=== PATIENT | male | born 1980 | race Caucasian/White ===

== ENCOUNTER 2016-05-12 23:04 | Observation (INO) | payer OTHER ==
[~2016-05-12] VITALS: Ht 177.8 cm; Wt 170.9 kg
--- NOTE | ~2016-05-12 | ER ---
PATIENT'S NAME: [facility] AGE: 35 Y [address] ROOM: [place] [address] LOCATION: [facility] [place] ADMIT DATE: 05/13/2016 ER/Outpatient Report DISCHARGE DATE: FAMILY PHYSICIAN: PHYSICIAN, NO ATTENDING PHYSICIAN: JOSE G HINOJOSA Time of Arrival: 2307 hours. Time of Exam: 2307 hours. CHIEF COMPLAINT: Alcohol detox. HISTORY OF PRESENT ILLNESS: The patient states he has been drinking a 5th of whiskey or two every day for approximately the past month. He was not feeling very well when he woke up this morning. Has not taken any of his medications, but continued to drink. He drank a pint and a 5th of whiskey today. Last drink was at 8:00 p.m. today. Denies feeling nauseated, has not vomited. Denies any desire to harm himself. He does have a history of alcohol abuse. Denies pain anywhere. When asked if he wants to quit drinking, he states that is the general plan. He states he has not been taking any of his medications for the past couple of days. He does take medications for diabetes and hypertension. ALLERGIES: PENICILLIN. CURRENT MEDICATIONS: On the chart and reviewed by me. PAST MEDICAL HISTORY: 1. Non insulin-dependent diabetes. 2. Hypertension. 3. PTSD. 4. Depression. 5. Asthma. 6. Obesity. 7. Prior detox, last was approximately a month ago. PAST SURGERIES: Negative. SOCIAL HISTORY: He states he does chew two cans daily. Denies use of marijuana or other street drugs. Does drink alcohol as mentioned in history. PATIENT'S NAME: [facility] AGE: 35 Y [address] ROOM: [address] [address] LOCATION: [facility] [place] ADMIT DATE: 05/13/2016 ER/Outpatient Report DISCHARGE DATE: FAMILY PHYSICIAN: PHYSICIAN, NO ATTENDING PHYSICIAN: JOSE G HINOJOSA REVIEW OF SYSTEMS: Negative other than those mentioned in the HPI. PHYSICAL EXAMINATION: VITAL SIGNS: He weighed 171.9 kg. Blood pressure is 189/91, pulse of 136, respirations 20, temperature of 98.9, O2 saturation was 98% on room air. Maycol Coma Scale is 15. GENERAL: He is awake, alert, and oriented x4. SKIN: His skin is pink, warm, and dry. RESPIRATIONS: Even and unlabored. Lung sounds are clear throughout. HEART: Regular rate and rhythm. ABDOMEN: Soft and nondistended. Bowel sounds are present. He walked in with a steady even gait. EMERGENCY DEPARTMENT COURSE: EKG was completed. It shows sinus tachycardia. IV saline lock was initiated with fluids of normal saline started at a wide-open rate. Banana bag was ordered from the pharmacy. Did Accu-Chek and was 166. Remainder of the lab results are not back at this time. Dr. Caldera was given report and he will continue to follow the patient. BALAJI APONTE APRN FOR MD ALAINA COUCH/carlin /[id number] d: 05/13/16 0247 t: 05/24/16 0836, OUTPATIENT REPORT
--- NOTE | ~2016-05-12 | HP ---
PATIENT'S NAME: [facility] AGE: 35 Y [address] ROOM: [place] [id number] [place] [facility] [place]: 05/13/2016 History & Physical DISCHARGE DATE: FAMILY PHYSICIAN: PHYSICIAN, NO ATTENDING PHYSICIAN: JOSE G HINOJOSA DATE OF SERVICE: CHIEF COMPLAINT: Alcohol intoxication. HISTORY OF PRESENT ILLNESS: This is a 35-year-old male with a long history of alcohol use disorder who was just recently discharged from here in March 2016 for alcohol intoxication and alcohol detoxification. The patient says that ever since he was discharged from here he was sober; however, about a week ago, he relapsed again. For the last 7 days, he has been drinking about 1-2 bottles of whiskey daily and his last drink was last night at 8 p.m. Yesterday, he started feeling that he was withdrawing with the sensation of a tachycardia, diaphoresis, shaking, tremor, and he knew he was withdrawing; so, he kept drinking alcohol; however, this time, he wants to get sober again that is why he came here to the emergency room for alcohol detoxification. He denies any nausea, vomiting, abdominal pain, melena, coffee-ground emesis, hematemesis, hematuria, or hematochezia. No abdominal pain either. REVIEW OF SYSTEMS: As mentioned in the history of present illness. All other systems reviewed and negative except those mentioned in the history of present illness. PAST MEDICAL HISTORY: 1. PTSD. 2. Asthma. 3. Alcohol use disorder. 4. Hypertension. 5. Hyperlipidemia. 6. Diabetes type 2. 7. Morbid obesity. ALLERGIES: AMOXICILLIN, WHICH CAUSES HIVES. HOME MEDICATIONS: It will be reconciled in the morning. SOCIAL HISTORY: PATIENT'S NAME: [facility] AGE: 35 Y [address] ROOM: [address] [address] [place] [facility] [place]: 05/13/2016 History & Physical DISCHARGE DATE: FAMILY PHYSICIAN: PHYSICIAN, NO ATTENDING PHYSICIAN: JOSE G HINOJOSA The patient is a longtime alcohol drinker for many years with the frequent alcohol withdrawal in the past. The patient smokes occasionally on and off usually 2-pack per day for several years. He denies any illegal drug use. PAST SURGICAL HISTORY: None. FAMILY HISTORY: Father is healthy, 2 brothers and 1 sister are also healthy, and mother had a history of DVT. PHYSICAL EXAMINATION: VITAL SIGNS: At the time of my dictation, temperature 98.4, heart rate 77, respirations 12, blood pressure 134/70, and saturation 96% on room air. Pain 0/10. GENERAL APPEARANCE: Alert and oriented x3, in no acute distress, a very pleasant male. HEENT: Pupils equally round and reactive to light. Extraocular muscles intact. Anicteric sclerae. Nasal turbinates are normal bilaterally. Moist oral mucosa. No oral thrush. NECK: No JVD. No cervical lymphadenopathy. No neck stiffness. CARDIOVASCULAR: Regular rate and rhythm. Normal S1, S2. No murmur, no rubs, no gallops. RESPIRATORY: Clear. ABDOMEN: Obese, soft, nontender, nondistended, normal bowel sounds, no hepatosplenomegaly. EXTREMITIES: No edema in upper or lower extremities. NEUROLOGICAL: Grossly nonfocal. There is no asterixis. SKIN: No ulcer, no rash, no cyanosis. MUSCULOSKELETAL: No joint pain. No muscle pain. Range of motion intact. LABORATORY DATA: CBC showed white blood cells 7.1, hemoglobin 13.8, hematocrit 41.2, MCV 82.7, and platelet 193. Glucose of 157, BUN 5, creatinine 0.9, sodium 142, potassium 3.2, chloride 102, CO2 21, calcium 8.4, total protein 7.4, albumin 3.6, AST 94, ALT 91, alkaline phosphatase 70, total bilirubin 0.3, magnesium 1.8, anion gap 22.2, and GFR more than 60. A1c 6.7 on March 07, 2016, INR 1.0, PTT 26. Urinalysis not yet collected. Urine drug screen, not yet collected. Alcohol 0.273. Tylenol level less than 2. Aspirin level less than 2.8. Acetone positive. Free T4 1.0. TSH 1.9. IMAGING STUDIES: None. ASSESSMENT AND PLAN: PATIENT'S NAME: [facility] AGE: 35 Y [address] ROOM: [place] [address] [place] [facility] [place]: 05/13/2016 History & Physical DISCHARGE DATE: FAMILY PHYSICIAN: PHYSICIAN, NO ATTENDING PHYSICIAN: JOSE G HINOJOSA 1. Alcohol intoxication with high-risk of alcohol withdrawal: Start the patient on the CIWA protocol. Use p.o. Ativan p.r.n. per CIWA protocol score. Fall precaution. Aspiration precaution. Social Service consult for alcohol use disorder. I will give the patient one dose right now of Valium 5 mg one time the patient is becoming tachycardic on my physical examination at the moment. Intravenous fluid hydration with the lactated Ringer's right now at 150 mL/hr. I will replace potassium with p.o. potassium tablet 40 mEq give one dose now and repeat another one in 4 hours. Start p.o. multivitamin, folic acid, magnesium, and also thiamine. Follow up on the urine drug screen test. The patient can have a diabetic diet. Fall precaution. Aspiration precaution. Seizure precaution. Further plan depends on clinical course. 2. Regarding his hypokalemia: We will replace with p.o. potassium chloride 40 mEq one dose now and repeat in 4 hours. 3. Regarding his transaminitis: Likely, it is alcohol induced. We will trend another liver function tests in the morning. There is no tenderness in the liver, there is no finding right now to suggest alcoholic hepatitis, and no need to get ultrasound at the moment. 4. Diabetes type 2: Starting on the insulin aspart low dose a.c. and h.s. and titrate as necessary. Home medication will be reconciled in the morning and they can be addressed at that time. 5. Hypertension: Home medications currently being reconciled. We will address in the morning once it is ready. 6. Asthma: Currently, well-controlled, not wheezing. 7. Deep vein thrombosis prophylaxis: He will be on Lovenox subcutaneous. Time spent on the day of admission 40 minutes including chart review, interviewing the patient, examining the patient, addressing all the questions and concerns that the patient had, and going over the plan of care with the nurse and with the patient. JOSE G HINOJOSA MD CC/carlin /[id number] D: [id number] T: [id number] HISTORY & PHYSICAL
--- NOTE | ~2016-05-12 | ER ---
PATIENT'S NAME: [facility]N [facility]LE [facility] AGE: 35 Y [address] ROOM: [address] [address] LOCATION: [facility] [place] ADMIT DATE: 05/13/2016 ER/Outpatient Report DISCHARGE DATE: FAMILY PHYSICIAN: PHYSICIAN, KATHE ATTENDING PHYSICIAN: JOSE G HINOJOSA CHIEF COMPLAINT: I saw this patient in conjunction with Ivelisse Juan APRN. The patient is clearly alcohol intoxicated and alcohol dependent. He has desired to withdraw. He also has diabetes and multiple metabolic derangements including elevated anion gap with an elevated alcohol level and positive serum ketones. However, his serum pH is 7.5, making DKA quite a bit less likely. He also has minimally elevated transaminases at 94 and 91 for AST and ALT respectively. His glucose is 157. Serum alcohol is 273. Salicylates are below threshold, as are acetaminophen levels. Serum magnesium is 1.8. No significant abnormalities on his CBC. EKG is notable for sinus tachycardia, ventricular rate of 132. The patient was given NS and a banana bag with improvement in his heart rates somewhat. He was intermittently tremulous. He had not been taking his home antihypertensives and was very hypertensive. With no overt signs of withdrawal at this time and based on the time course since his last drink, I think it is less likely that he is actively withdrawing. That being said, he would be high risk for multiple complications in this situation. For that reason, we will admit him to the hospitalist, Dr. Hinojosa, for further evaluation and treatment. MD PAULA COUCH/carlin /[id number] d: 05/13/161911 t: 05/24/16 0834, OUTPATIENT REPORT
--- NOTE | ~2016-05-12 | DS ---
PATIENT'S NAME: AILYN [facility] AGE: 35 Y [address] ROOM: [address] [place], [place] [address] [place] [facility] [place] DATE: 05/13/2016 Discharge Summary DISCHARGE DATE: 05/15/2016 FAMILY PHYSICIAN: , NO ATTENDING PHYSICIAN: Benitez Kingston CORRECTED CO-SIGNING PROVIDER PER PHYSICIAN 05/31/16 AO FAMILY PHYSICIAN: Dr. Blanco in [place]. DISCHARGE DIAGNOSES: 1. Alcohol intoxication with alcohol withdrawal. 2. Alcohol dependence. 3. Hypertension, essential. 4. Diabetes type 2. 5. Posttraumatic stress disorder. 6. Asthma. 7. Morbid obesity. 8. Dyslipidemia. 9. Hypokalemia, resolved. DISCHARGE MEDICATIONS: 1. New medication; Coreg 12.5 mg p.o. b.i.d. with meals, #30 given, no refills. 2. Cetirizine 10 mg p.o. at bedtime. 3. Fluconazole propionate INH 50 mcg per puff, 2 puffs each nare daily. 4. Folic acid 1 mg daily. 5. Lisinopril (note dose change) 20 mg p.o. daily, #15 given, no refills. 6. Metformin 1000 mg p.o. twice daily. 7. Multivitamin p.o. daily. 8. Protonix 20 mg p.o. q.a.m. 9. Pravastatin 80 mg p.o. at bedtime. 10. Sertraline 100 mg p.o. q.a.m. 11. Thiamine 100 mg p.o. q.a.m. 12. Trazodone 200 mg p.o. at bedtime. 13. Methocarbamol 500 mg p.o. b.i.d. p.r.n. pain. 14. ASA 81 mg p.o. daily. 15. Cholecalciferol 2000 units p.o. daily. 16. Naprosyn 250 mg 1 or 2 tabs p.o. b.i.d. p.r.n. pain. HOSPITAL COURSE: Please refer to the admitting H and P dictated by Dr. Kingston for a more detailed outline of the patient's presentation. The patient was admitted and placed on the alcohol detox pathway. He was placed on lactated Ringer's IV fluid. He was given KCl 40 mEq x1 and then repeated again in 4 hours to help with his hypokalemia. The patient was placed on a nicotine patch. The patient had no difficulties as far as seizure activity going through his withdrawals. Did experience some mild distress. The patient was PATIENT'S NAME: AILYN VALLE [facility] AGE: 35 Y [address] ROOM: [place] [address] [place] [facility] [place] DATE: 05/13/2016 Discharge Summary DISCHARGE DATE: 05/15/2016 FAMILY PHYSICIAN: KATHE HOROWITZ ATTENDING PHYSICIAN: Benitez Kingston offered opportunity for inpatient rehab. The patient declined. The patient has been through inpatient rehab twice before. The patient's preference is to be discharged back to his own home and to follow up with outpatient AA and sponsorship. The patient did have his metoprolol discontinued and carvedilol started to help control with the detox process and hypertension. We discussed with the patient extensively concerning lifestyle modifications including discontinuance of tobacco and alcohol use, lifestyle modifications including weight loss. Reviewed high risk for stroke given his hypertension, dyslipidemia, and social habits. Ultimately, it was felt the patient was stable to discharge home on 05/15/2016 and arrangements were made for this. The patient [facility] in the next upcoming days of which we encouraged him to keep. Encouraged him to follow up particularly in terms of his hypertension for better management. Discharge of this patient took less than 35 minutes. CAILIN FLETCHER PA-C FOR MD BISI BLACKMON/carlin /[id number] CORRECTED CO-SIGNING PROVIDER PER PHYSICIAN 05/31/16 AO d: 05/16/16 0150 t: 06/05/16 1657, DISCHARGE SUMMARY
[~2016-05-12 23:04] MED LIST: ALEVE220 MG PO; ALLERGY10 MG PO; ASPIRIN LO-DOSE81 MG PO; COLACE100 MG PO; DESYREL100 MG PO; FLONASE 50 MCG/16 GM NOSE; FOLIC ACID1 MG PO; GLUCOPHAGE500 MG PO; MAG-OX-400(241400 MG PO; MIRALAX17 GM PO; PEPCID20 MG PO; PRAVASTATIN SOD80 MG PO; PRINIVIL (ZESTR20 MG PO; PRINIVIL (ZESTRI5 MG PO; PROTONIX40 MG PO; ROBAXIN500 MG PO; THERAGRAN-M1 TAB PO; THIAMINE HCL100 MG PO; ZOLOFT100 MG PO
[2016-05-12 23:31] LABS: BASOPHIL # 0.1 K/uL (0.0-0.2); BASOPHIL % 1.1 %; EOSINOPHIL % 0.1 %; HEMATOCRIT 41.2 % (37.0-53.0); HEMOGLOBIN 13.8 g/dL (12.0-17.0); IMMATURE GRANULOCYTE % 0.4 %; LYMPHOCYTE # 2.1 K/uL (0.8-4.0); LYMPHOCYTE % 29.4 %; MCH 27.7 pg (27.0-34.0); MCHC 33.5 gm/dL (32.0-36.5); MCV 82.7 fl (83.0-98.0); MONOCYTE # 0.5 K/uL (0.0-1.0); MONOCYTE % 7.6 %; MPV 9.9 fl (9.4-12.4); NEUTROPHIL # (ANC) 4.3 K/uL (1.4-9.0); NEUTROPHIL % 61.4 %; NRBC % 0 /100WBC (0-0.00); RBC 4.98 M/uL (4.00-6.00); RDW-CV 14.5 % (11.9-14.6); WBC 7.1 K/uL (4.0-11.0)
[2016-05-12 23:38] LABS: PROTIME 10.4 SECONDS (9.6-11.1); PTT 26 SECONDS (25-32)
[2016-05-12 23:41] LABS: PLATELET COUNT 193 K/uL (150-450)
[2016-05-12 23:48] LABS: MAGNESIUM 1.8 mg/dL (1.3-2.6)
[2016-05-12 23:51] LABS: ALBUMIN 3.6 gm/dL (3.5-5.0); ALK PHOS 70 IU/L (33-138); ALT 91 IU/L (12-78); ANION GAP 22.2 (10.0-19.0); AST 94 IU/L (10-40); BLOOD UREA NITROGEN 5 mg/dL (6-24); CALCIUM 8.4 mg/dL (8.5-10.5); CHLORIDE 102 mMol/L (96-110); CO2 21 mMol/L (22-32); CREATININE 0.9 mg/dL (0.6-1.3); ESTIMATED GFR (MDRD EQUATION) > 60; POTASSIUM 3.2 mMol/L (3.7-5.1); SODIUM 142 mMol/L (135-145); TOTAL PROTEIN 7.4 g/dL (6.0-8.4)
[2016-05-12 23:53] LABS: TOTAL BILIRUBIN 0.3 mg/dL (0.0-1.5)
[2016-05-13] MEDS ORDERED: VITAMIN D2000 UNI1 PO (02:11)
[2016-05-13] MEDS ORDERED: PROTONIX40 MG PO (02:12)
--- NOTE | 2016-05-13 02:59 | NUR ---
PATIENT STATES THAT HE HAD BEEN DRINKING FOR THE PAST WEEK. PATIENT STATED IN THE MORNING OF 05/13/16 HAD STARTED HAVING DT'S. HE KEPT DRINKING TO STOP THE DT'S UNTIL HE COULD GET TO THE HOSPITAL. HE GOT TO THE HOSPITAL AT 2200. PATIENT STATES THAT HE STOPPED DRINKING AT 2000 AND HE HAD 1/5 AND A PINT OF WHISKEY. PATIENTS FRIEND DROVE HIM TO THE ER.
--- NOTE | 2016-05-13 05:28 | NUR ---
Significant Event: PO Valium given per MD orders. A&O x3. IV fluids running, when done call MD for further fluid orders. No void. Last temperature 99.7. On room air. No nausea. Follow up:
[2016-05-13 08:34] LABS: HEMATOCRIT 37.6 % (37.0-53.0); HEMOGLOBIN 12.6 g/dL (12.0-17.0); MCH 28.3 pg (27.0-34.0); MCHC 33.5 gm/dL (32.0-36.5); MCV 84.5 fl (83.0-98.0); RBC 4.45 M/uL (4.00-6.00); RDW-CV 14.8 % (11.9-14.6); WBC 5.1 K/uL (4.0-11.0)
[2016-05-13 08:51] LABS: ALBUMIN 3.5 gm/dL (3.5-5.0); ALK PHOS 71 IU/L (33-138); ALT 94 IU/L (12-78); BLOOD UREA NITROGEN 6 mg/dL (6-24); CALCIUM 8.3 mg/dL (8.5-10.5); CHLORIDE 106 mMol/L (96-110); CO2 25 mMol/L (22-32); ESTIMATED GFR (MDRD EQUATION) > 60; PHOSPHORUS 3.5 mg/dL (2.5-4.9); SODIUM 142 mMol/L (135-145); TOTAL PROTEIN 7.2 g/dL (6.0-8.4)
[2016-05-13 09:01] LABS: ANION GAP 15.1 (10.0-19.0); AST 107 IU/L (10-40); MAGNESIUM 1.9 mg/dL (1.3-2.6); POTASSIUM 4.1 mMol/L (3.7-5.1); TOTAL BILIRUBIN 0.4 mg/dL (0.0-1.5)
--- NOTE | 2016-05-13 16:30 | NUR ---
Significant Event:Is A/O.Has IV in Lt.arm.Had zofran at 0630 this morning.Had ativan 1mg po at 0900 & librium 50mg po at 1540.Has been pretty sweaty & tachycardic plus hypertensive.Stomach queezy at times.No tremors earlier but having some now.Pleasant & cooperative. Follow up:
--- NOTE | 2016-05-14 03:46 | NUR ---
Significant Event:pt is a/o x3, cooperative w/ cares, ciwa score of 1 and 3 for slight tremors and sweating, pt running low grade fever of 99.6-100.3. pt has been hypertensive. metoperol 5 mg given iv x1 @ 1920 for sbp >150. iv to l arm has lr running @ 75ml/hr. accuchecks ac/hs, bs was 115 no ss insulin given. possible discharge home today. Follow up:
[2016-05-14 05:06] LABS: BASOPHIL # 0.1 K/uL (0.0-0.2); BASOPHIL % 0.9 %; EOSINOPHIL # 0.1 K/uL (0.0-0.5); EOSINOPHIL % 1.3 %; HEMATOCRIT 37.6 % (37.0-53.0); HEMOGLOBIN 12.3 g/dL (12.0-17.0); IMMATURE GRANULOCYTE % 0.2 %; LYMPHOCYTE # 1.6 K/uL (0.8-4.0); LYMPHOCYTE % 30.5 %; MCHC 32.7 gm/dL (32.0-36.5); MCV 85.6 fl (83.0-98.0); MONOCYTE # 0.4 K/uL (0.0-1.0); MPV 9.9 fl (9.4-12.4); NEUTROPHIL # (ANC) 3.2 K/uL (1.4-9.0); NEUTROPHIL % 60.1 %; NRBC % 0 /100WBC (0-0.00); PLATELET COUNT 130 K/uL (150-450); RBC 4.39 M/uL (4.00-6.00); RDW-CV 14.7 % (11.9-14.6); WBC 5.3 K/uL (4.0-11.0)
[2016-05-14 05:19] LABS: ANION GAP 11.6 (10.0-19.0); BLOOD UREA NITROGEN 9 mg/dL (6-24); CALCIUM 9.2 mg/dL (8.5-10.5); CHLORIDE 105 mMol/L (96-110); CO2 30 mMol/L (22-32); CREATININE 1.1 mg/dL (0.6-1.3); ESTIMATED GFR (MDRD EQUATION) > 60; POTASSIUM 3.6 mMol/L (3.7-5.1); SODIUM 143 mMol/L (135-145)
--- NOTE | 2016-05-14 15:32 | NUR ---
Significant Event:Is A/O.Had alittle Rt.knee & lower back discomfort today which is not anything new.Feels alot better than yesterday.Very little tremors.IV in Lt.arm.Had Librium 25mg at 1440.Has been up.Is steady on feet.Has been hypertensive. Follow up:
--- NOTE | 2016-05-15 04:07 | NUR ---
Significant Event: Patient alert and oriented. UP ad thiago. At beginning of shift, patient wanted to leave AMA. Discussed risks of leaving with blood pressures of 160-170s/1teens-120s. Patient decided to stay. CIWA score of 9 at 2100. 1 mg ativan given per protocol. 5mg valium given per MD orders. Patient rested well. Pressures improved to 148/93. Pleasant and cooperative with cares. Follow up: continue to monitor
--- NOTE | 2016-05-15 15:21 | NUR ---
Significant Event: Pt denies pain. Slight tremors in hands this shift, and headache. BP elevated 150's to 160's systolic, and dialystolic upper 80's to 90's. MD aware. Will dc to home later today. Around 1130, did c/o feeling funny like he was high, no narcotics or sedatives have been given since last night, MD aware. Follow up:
[2016-05-15] MEDS ORDERED: COREG12.5 MG PO (15:52)
--- NOTE | 2016-05-15 16:26 | NUR ---
D:Orders received for patient to be dismissed. I:Dismissal instructions were prepared and reviewed with the patient by the virtual nurse using computer technology. The following information was reviewed: diet and activity recommendations for home, s/s of abnormalities to monitor for, importance of avoiding alcohol, home medications/new prescription medications, and the need for the patient to keep his scheduled [facility] this [facility] and next. Carmela education given to and reviewed with the patient on the following topics: Understanding Alcoholism, Coreg, and Preventing Deep Vein Thrombosis. R:The patient verbalized understanding of teaching and denied questions at the time. The patient's primary nurse was informed that the dismissal education had been reviewed with the patient. The paperwork and prescriptions were going to be given to the patient. P:The patient will be dismissed when his ride arrives later this afternoon. Rhianna SHAFFER
== END 2016-05-15 16:38 | disposition disaster alternative care site (69) ==
LOC: GMED 23:04 → GMSU 05-13 00:47
PROVIDERS: Emergency Medicine; Internal Medicine; ADMIT Internal Medicine
DX: F10.239 Alcohol dependence with withdrawal, unspecified (principal); F10.229 Alcohol dependence with intoxication, unspecified; I10 Essential (primary) hypertension; E11.9 Type 2 diabetes mellitus without complications; J45.909 Unspecified asthma, uncomplicated; E66.01 Morbid (severe) obesity due to excess calories; E78.5 Hyperlipidemia, unspecified; E87.6 Hypokalemia; F43.10 Post-traumatic stress disorder, unspecified; Z88.1 Allergy status to other antibiotic agents; Z79.84 Long term (current) use of oral hypoglycemic drugs; Z79.51 Long term (current) use of inhaled steroids; Z79.899 Other long term (current) drug therapy
CPT/HCPCS: A9270; G0378; G0480; J1650; J2405; J3411; J3475; J7030; J7120

== ENCOUNTER 2016-05-30 12:20 | Observation (INO) | payer OTHER ==
[~2016-05-30] VITALS: Ht 177.8 cm; Wt 174.8 kg
--- NOTE | ~2016-05-30 | ER ---
PATIENT'S NAME: AILYN VALLE [facility] AGE: 35 Y [address] ROOM: [place] [address] LOCATION: [facility] ADMIT DATE: 05/30/2016 ER/Outpatient Report DISCHARGE DATE: FAMILY PHYSICIAN: PHYSICIAN, NO ATTENDING PHYSICIAN: JOSE G HINOJOSA Time Seen: 1205 hours. HISTORY OF PRESENT ILLNESS: The patient is a 35-year-old male with known history of alcohol abuse. The patient presents to the emergency room requesting detox. The patient said he has been through treatment on several occasions. He was last admitted to [facility] in February. The patient states his last alcoholic drink was within the last 12 hours. He has experienced some nausea and shakes. ALLERGIES: AMOXICILLIN. CURRENT MEDICATIONS: See copied list which is quite extensive and was reviewed. MEDICAL HISTORY: Includes posttraumatic stress disorder, asthma, chronic alcohol abuse, hyperlipidemia, type 2 diabetes, morbid obesity. SOCIAL HISTORY: Nonsmoker, does chew. Alcohol, frequently, last drink was within the last 12 hours. REVIEW OF SYSTEMS: GENERAL: No fevers or chills. HEAD/ENT: Denies any headache, visual changes, sore throat. RESPIRATORY: No shortness of breath or cough. CARDIOVASCULAR: Denies chest pain or palpitations. GASTROINTESTINAL: Some nausea. Denies any black stools. GENITOURINARY: No incontinence. NEUROPSYCH: Denies any suicidal ideations. LABORATORY DATA AND X-RAYS: CMS does have some elevation of his AST at 75 as well as his ALT. His alcohol was 0.038. He had no elevation of his acetaminophen or salicylate levels. Lactate was up at 4.1. His CBC; white count 5.5, hemoglobin 13.6. His urine drug screen was positive for benzodiazepine. ASSESSMENT: PATIENT'S NAME: AILYN VALLE [facility] AGE: 35 Y [address] ROOM: [place] [address] LOCATION: [facility] ADMIT DATE: 05/30/2016 ER/Outpatient Report DISCHARGE DATE: FAMILY PHYSICIAN: PHYSICIAN, NO ATTENDING PHYSICIAN: JOSE G HINOJOSA 1. Chronic alcohol abuse. 2. Hyperlipidemia. 3. Hypertension. 4. Morbid obesity. 5. Type 2 diabetes mellitus. 6. History of asthma. PLAN: The patient will be admitted by the Hospitalist Service for detox. Saline lock placed today. We did order banana bag. BRANDI HANSEN FOR MD NETO COUCH/modl /[id number] d: 05/30/162235 t: 06/13/16 2143, OUTPATIENT REPORT
--- NOTE | ~2016-05-30 | HP ---
PATIENT'S NAME: AILYN [facility] AGE: 35 Y [address] ROOM: [place] [address] LOCATION: [facility] ADMIT DATE: 05/30/2016 History & Physical DISCHARGE DATE: FAMILY PHYSICIAN: PHYSICIAN, NO ATTENDING PHYSICIAN: JOSE G HINOJOSA Corrected drug per dictation 05/31/16 AO DATE OF SERVICE: CHIEF COMPLAINT: Alcohol intoxication and looking for alcohol detoxification. HISTORY OF PRESENT ILLNESS: This is a 35-year-old, male with a long history of alcohol use disorder with frequent hospitalization in the past for alcohol withdrawal. The patient was discharged here on May 15, 2016 for another episode of alcohol intoxication and alcohol withdrawal from alcohol use disorder. The story starts when the patient was discharged home. At that time, the patient went back to drinking every day. Initially, he was drinking about 1/5 of the big bottle of whiskey every day, but he has increased his alcohol intake to 2 big whisky bottles daily for the last week. Last drink was last night. He started feeling nauseous this morning and vomited 3 times of a nonbloody content. His last meal was last night. He had 2 episodes of loose stools, nonbloody, last night also. Today, he has not had a bowel movement. He denies any abdominal pain. The patient came here voluntarily again for alcohol intoxication and looking for alcohol detoxification. Otherwise, he denies any other symptoms. He states that he has stopped going to the AA meeting, but he is willing to try again this time to really get over with alcohol dependence. REVIEW OF SYSTEMS: As mentioned in the history of present illness. All other systems reviewed and negative except those mentioned in the history of present illness. PAST MEDICAL HISTORY: 1. PTSD. 2. Asthma. 3. Alcohol use disorder with frequent alcohol intoxication and alcohol withdrawal in the past. 4. Hypertension. 5. Hyperlipidemia. 6. Diabetes type 2. 7. Morbid obesity. ALLERGIES: AMOXICILLIN WHICH CAUSES HIVES. PATIENT'S NAME: AILYN [facility] AGE: 35 Y [address] ROOM: [place] [address] LOCATION: [facility] ADMIT DATE: 05/30/2016 History & Physical DISCHARGE DATE: FAMILY PHYSICIAN: PHYSICIAN, NO ATTENDING PHYSICIAN: JOSE G HINOJOSA NOBLE MEDICATIONS: Currently is being reconciled. SOCIAL HISTORY: Longtime alcohol drinker with frequent alcohol intoxication and alcohol withdrawal in the past. He is drinking for many years and recently he has been drinking whiskey with 2 big bottles of whiskey every day for the last week; before that, he drank about 1/5 of the 1 bottle whiskey every day. The patient is an occasional cigarette smoker on and off about 2 packs per day for several years, and recently, he has been chewing tobacco about 2 cans per day. He denies any illegal drug use. PAST SURGICAL HISTORY: None. FAMILY HISTORY: Father is healthy. Two brothers and one sister are also healthy. Mother had a history of DVT. PHYSICAL EXAMINATION: VITAL SIGNS: At the time of my dictation, temperature 98.3, heart rate 112, respirations 14, blood pressure 143/99, and saturation 96% on room air. GENERAL APPEARANCE: Alert and oriented x3, in no acute distress. HEENT: Pupils are equally round and reactive to light. Extraocular muscles intact. Anicteric sclerae. Nasal turbinates are normal bilaterally. Moist oral mucosa. NECK: No JVD. No cervical lymphadenopathy. No neck stiffness. CARDIOVASCULAR: Tachycardic. Normal S1, S2. No murmur, no rubs, no gallops. RESPIRATORY: Clear. No wheezing, no rhonchi, no rales, and no crackles. ABDOMEN: Obese, soft, nontender, nondistended, normal bowel sounds, no hepatosplenomegaly. Bowel sounds present. EXTREMITIES: No edema in upper or lower extremities. NEUROLOGICAL: Grossly nonfocal. SKIN: No ulcer, no rash, no cyanosis. MUSCULOSKELETAL: No joint pain. No muscle pain. LABORATORY DATA: Lactic acid 4.1. White blood cells 5.5, hemoglobin 13.6, hematocrit 40.3, MCV 82.6, and platelet 249. Glucose 139, BUN 12, creatinine 1.1, sodium 141, potassium 3.8, chloride 103, CO2 24, calcium 8.6, total protein 7.9, albumin 3.9, AST 75, ALT 103, alkaline phosphatase 71, and total bilirubin 0.3. GFR more than 60. Hemoglobin A1c back on March 07, 2016, was 6.7. Urine drug screen showed positive for benzodiazepine. Alcohol level 0.038. Tylenol level less than 2. Aspirin level less than 2.8. PATIENT'S NAME: AILYN [facility] AGE: 35 Y [address] ROOM: [id number] [place], [place] [address] LOCATION: [facility] ADMIT DATE: 05/30/2016 History & Physical DISCHARGE DATE: FAMILY PHYSICIAN: PHYSICIAN, NO ATTENDING PHYSICIAN: JOSE G HINOJOSA IMAGING STUDIES: None. ASSESSMENT AND PLAN: 1. Alcohol intoxication with high risk of alcohol withdrawal from alcohol use disorder: Currently continue IV banana bag. Once he is finished, I will put him on normal saline with maintenance at 125 mL/h. I will do the alcohol intoxication and withdrawal protocol with p.o. Ativan per CIWA score. Currently, I am going to give him 1 dose of p.o. Valium 10 mg one time given the patient is tachycardic and is a little bit restless on my examination, and the patient has a frequent alcohol withdrawal in the past. Valium will be given right now for long-acting and then followed by Ativan p.o. p.r.n. per CIWA score. Continue multivitamin and folic acid and thiamine and magnesium. Repeat labs in the morning. Consult Surgical Supply Assistant at this time to help the patient get over with the alcohol dependence. Ambulate as tolerated. Can have a diabetic diet. Further plan depends on clinical course. 2. Diabetes type 2: Insulin sliding scale with NovoLog moderate dose a.c. and h.s. and titrate as necessary. A1c is already checked less than 3 months ago and will not be repeated. 3. Active tobacco use: Nicotine patch 21 g transdermal daily. 4. Asthma: Under good control. Continue home medication. Not in exacerbation. 5. Hypertension: Continue home medication with holding parameters. 6. Deep venous thrombosis prophylaxis: He will be on Lovenox subcu daily. Time spent in care on the day of admission 35 minutes including chart review, interviewing the patient, examining the patient, addressing all the questions and concerns the patient had, and going over the plan of care with the patient and nurses. JOSE G HINOJOSA MD CC/modl /[id number] Corrected drug per dictation 05/31/16 AO D: [id number] T: [id number] HISTORY & PHYSICAL
--- NOTE | ~2016-05-30 | DS ---
PATIENT'S NAME: AILYN [facility] AGE: 35 Y [address] ROOM: [address] [place], [place] [address] LOCATION: [facility] ADMIT DATE: 05/30/2016 Discharge Summary DISCHARGE DATE: 06/01/2016 FAMILY PHYSICIAN: KATHE HOROWITZ ATTENDING PHYSICIAN: Benitez Kingston DISCHARGE DIAGNOSES: 1. Acute alcohol intoxication, with detox. 2. Diabetes mellitus, type 2. 3. Chronic hypercapnic respiratory failure, obstructive sleep apnea. 4. Asthma. 5. Morbid obesity. 6. Tobacco use. 7. Essential hypertension. 8. Posttraumatic stress disorder. HOSPITAL COURSE: Please refer to admitting history and physical as dictated by Dr. Kingston. Briefly, the patient was admitted to [facility] for acute alcohol intoxication. He was started on the alcohol detox pathway with Ativan and Valium. His blood sugars were monitored a.c. and h.s. with sliding scale insulin. His home CPAP was used while the patient was asleep. Zofran was used for intermittent nausea. The patient did have complaints of intermittent chest pain, which he has had for years. EKG was performed which did show sinus tach. Cardiac enzymes were negative x1 set. Troponin less than 0.040. CK-MB 1.1. His CPK was slightly elevated at 433. He was given a banana bag. His magnesium was found to be 1.0 and was replaced p.o.; on the day of discharge, 1.5. freight car repairer did meet with the patient regarding inpatient treatment; however, he refused this. He wanted to continue to try Alcoholics Anonymous and continue seeing his counselor. It was encouraged to the patient to get a sponsor and prevent alcohol intake. Recommended if gets the urge to drink, to get up and do something such as go for a walk. Lovenox was used for DVT prophylaxis. He was hypertensive at times. He was continued on his home medication regimen. On 06/01/2016, vital signs were stable. He had a very slight tremor to bilateral hands. He was up and ambulatory. It was felt as though he was safe to be discharged to home. Follow up with his primary care provider in 3 days. LABORATORY DATA: Sodium 141 to 146, potassium 3.8 to 4.0, calcium 8.5, BUN 12 to 17, and creatinine 1.1 to 1.3. AST 114 and ALT 107. Phosphorus 3.6. GFR remained greater than 60. Magnesium 1.0, at discharge 1.5. Alcohol level upon admit 0.038. CPK 433, CK-MB 1.1, and troponin less than 0.040. Tylenol level less than 2.0. Salicylate level less than 2.8. WBCs 5.5, hemoglobin 13.6, hematocrit 40.3, and platelets 249. Urine drug screen positive for benzodiazepine. PATIENT'S NAME: AILYN VALLE [facility] AGE: 35 Y [address] ROOM: [address] [address] LOCATION: T ADMIT DATE: 05/30/2016 Discharge Summary DISCHARGE DATE: 06/01/2016 FAMILY PHYSICIAN: KATHE HOROWITZ ATTENDING PHYSICIAN: Benitez Kingston DISCHARGE INSTRUCTIONS: The patient will be discharged to home. DIET: Diabetic. ACTIVITY: As tolerated. FOLLOWUP: Appointment with PCP with [facility] at the [facility] in 3 days. Follow up with DC counselor. AA meetings. No drinking alcohol. DISCHARGE MEDICATIONS: 1. Aspirin 81 mg p.o. daily. 2. Coreg 12.5 mg p.o. twice daily. 3. Cetirizine 10 mg p.o. q.h.s. 4. Flonase 2 puffs nasally daily. 5. Folic acid 1 mg p.o. daily. 6. Neurontin 100 mg p.o. twice daily. 7. Neurontin 30 mg p.o. q.h.s. 8. Lisinopril 20 mg p.o. daily. 9. Magnesium oxide 400 mg p.o. daily x3 days. 10. Multivitamin one tablet p.o. daily. 11. Protonix 40 mg p.o. daily. 12. Pravastatin 40 mg p.o. q.h.s. 13. Sertraline 100 mg p.o. daily. 14. Thiamine 100 mg p.o. daily. 15. Trazodone 200 mg p.o. q.h.s. 16. Glucophage 1000 mg p.o. twice daily. 17. Robaxin 500 mg p.o. twice daily p.r.n. pain. 18. Vitamin D 2000 units p.o. daily. Thank you for allowing us to participate in the care of this patient as he has been hospitalized at [facility]. JAY UNGER APRN FOR MD AILYN MARTINEZ/modl /[id number] d: 06/02/16 1501 t: 06/13/16 1202, DISCHARGE SUMMARY
[~2016-05-30 12:20] MED LIST changes: +COREG12.5 MG PO; +VITAMIN D2000 UNI1 PO
[2016-05-30 13:25] LABS: BARBITURATE NEGATIVE (NEGATIVE); COCAINE NEGATIVE (NEGATIVE); OPIATES NEGATIVE (NEGATIVE)
[2016-05-30 13:28] LABS: AMPHETAMINE NEGATIVE (NEGATIVE)
[2016-05-30 13:34] LABS: BASOPHIL # 0.1 K/uL (0.0-0.2); BASOPHIL % 1.8 %; EOSINOPHIL % 0.4 %; HEMATOCRIT 40.3 % (37.0-53.0); HEMOGLOBIN 13.6 g/dL (12.0-17.0); IMMATURE GRANULOCYTE % 0.7 %; LYMPHOCYTE % 17.6 %; MCH 27.9 pg (27.0-34.0); MCHC 33.7 gm/dL (32.0-36.5); MCV 82.6 fl (83.0-98.0); MONOCYTE # 0.4 K/uL (0.0-1.0); MONOCYTE % 6.5 %; NRBC % 0 /100WBC (0-0.00); RBC 4.88 M/uL (4.00-6.00); RDW-CV 14.6 % (11.9-14.6); WBC 5.5 K/uL (4.0-11.0)
[2016-05-30 13:35] LABS: PLATELET COUNT 249 K/uL (150-450)
[2016-05-30 13:59] LABS: ALBUMIN 3.9 gm/dL (3.5-5.0); ALK PHOS 71 IU/L (33-138); ALT 104 IU/L (12-78); ANION GAP 17.8 (10.0-19.0); AST 75 IU/L (10-40); BLOOD UREA NITROGEN 12 mg/dL (6-24); CALCIUM 8.6 mg/dL (8.5-10.5); CHLORIDE 103 mMol/L (96-110); CO2 24 mMol/L (22-32); CREATININE 1.1 mg/dL (0.6-1.3); ESTIMATED GFR (MDRD EQUATION) > 60; POTASSIUM 3.8 mMol/L (3.7-5.1); SODIUM 141 mMol/L (135-145); TOTAL PROTEIN 7.9 g/dL (6.0-8.4)
[2016-05-30 14:00] LABS: TOTAL BILIRUBIN 0.3 mg/dL (0.0-1.5)
[2016-05-30] MEDS ORDERED: NEURONTIN100 MG PO ×2 (15:26→15:27)
--- NOTE | 2016-05-30 16:20 | NUR ---
35 Y/O MALE ADMITTED FOR SELF ADMITTED FOR ALCOHOL DETOX. ALLERGIES = AMOXICILLIN MEDICAL & SURGICAL HISTORY - NO OPERATION IN LIFETIME. DMII, HTNN, HIGH CHOL. CHRONIC BRONCHITIS, SOB (PT STATES IT IS BECAUSE I AM OUT OF SHAPE, THATS ALL, I AM ALWAYS SOB), BILAT PEDAL EDEMA, SINUS DRAINAGE, EDEMA, HX KIDNEY STONES, DRUG ABUSE IN PAST NOT USED STREET DRUGS IN OVER 10 YEARS. DEPRESSION, ANXIETY, PTSD & POSTITIVE TESTING FOR TRAUMATIC BRAIN INJURY WHILE HE WAS IN THE [place] IN [place]. ALSO BACK BACK FROM THEN WELL. PT FORMER SMOKER, BUT NOW STATES HE CHEWS 2 CANS DAILY. WHEN ASKED, PT STATES THAT FOR THE PAST WEEK HE HAS BEEN DRINKING ABOUT 2 OF THE 750ML BOTTLE OF RORY BEAM DAILY. TODAY C/O DIZZINESS, NAUSEA, VOMITING, PT IS JITTERY AND DIAPHORETIC. ALSO PT STATES HE WAS TESTED & TOLD THAT HE HAD HEPATITIS A APPROX 4-5 YRS AGO. REPORT GIVEN TO PT PRIMARY CARE NURSE LILIANE SHAFFER PT ALREADY KNOWLEDGED ON ADM DATA.
--- NOTE | 2016-05-30 18:36 | NUR ---
Significant Event: admitted to [facility] at 1508. full code. allergic to amoxicillin. voluntary admission for alcohol detox. dr. tidwell admittedn. a/o x 3. chronic right knee pain that is intermittent- none at this time. CPAP at home at night. noted congestion/cough. tele. ETCO2 monitor. oxygen monitor. intermittent nausea and abdominal pain. diaphoretic. accuchecks ac/hs. activity as tolerated and diabetic diet. IV in left anterior forearm with banana bag infusing at 125ml/hr. patient is tearful. does have hx of depression and anxiety. states "wants to get clean".
--- NOTE | 2016-05-31 04:58 | NUR ---
Significant Event: AAOx3, numbness to L) thigh and tingling to feet, chronic for patient. PERRLA 3mm brisk, denies blurred vision or BAH. Equal strong strength throughout, tremors felt with arms extended fingertip to fingertip. L.S. clear and diminished in LL's on CPAP while sleeping otherwise RA during day with EtCO2 Monitoring. B.S. active, last BM 05/29 abdomen distended and firm. Urinates per urinal, dark carmen in appearance. PIV L) forearm infusing NaCl at 125mL/hr then call MD afterwards for further instruction once bag is done infusing. ADA diet, Accuchecks AC/HS; no coverage needed. Gave Ativan x 2 for CIWA scores 11 and 8 respectively; currently CIWA 4-5 with no cloudiness in orientation, slight tremors and sweating present with mild anxiety at times. On Lovenox. Has periods of intermittent Nausea, gave Zofran at 1900 and Phenergan IM. Follow up: CIWA scoring, ETCO2 monitoring, Notify MD once current N.S. bag is done infusing for further instructions.
[2016-05-31 08:32] LABS: ALBUMIN 3.4 gm/dL (3.5-5.0); ALK PHOS 61 IU/L (33-138); ALT 107 IU/L (12-78); AST 114 IU/L (10-40); BLOOD UREA NITROGEN 17 mg/dL (6-24); CALCIUM 8.4 mg/dL (8.5-10.5); CHLORIDE 103 mMol/L (96-110); CO2 28 mMol/L (22-32); CREATININE 1.3 mg/dL (0.6-1.3); ESTIMATED GFR (MDRD EQUATION) > 60; SODIUM 141 mMol/L (135-145); TOTAL BILIRUBIN 0.4 mg/dL (0.0-1.5); TOTAL PROTEIN 6.8 g/dL (6.0-8.4)
--- NOTE | 2016-05-31 11:24 | NUR ---
Introduced self and care management services to patient. Lives in [place]. Discussed with patient in the hospital to detox from alcohol abuse. Asked him if he would like us to help him set up inpatient alcohol treatment on discharge. He said no, he doesn't, has been to inpatient alcohol treatment program in the past and doesn't want to do that again. Asked where he has been to inpatient treatment at and he tells me in [place], [place] and [place]. Asked if he is currently seeing a counselor for treatment of his alcoholism as an outpt. He says he sees Samir at the [facility] for counseling. Asked how often he sees his counselor and he said lately it has been weekly. Told him there are outpt treatment programs in [place] that have sliding scale fees if he doesn't want to drive to [place], or he could see if the [facility] would pay for outpt treatment counseling in [place]. He tells me it doesn't cost him anything at the [facility] for counseling and they won't pay for treatment in [place] somewhere because he doesn't meet the cutoff of miles away from [facility] to qualify for that. He tells me he plans to get back into going to , hasn't done that for a long time, and says he thinks that will help him. Asked him if he has been to AA in [place] before and knows where it is, he says he has and he does, offered to get him the phone number and he says he has it. Asked him if he still has alcohol in his home and he says he doesn't think so. Told him if he does should have a friend go dump it out so not there when he gets home. He voices understanding. Pt plan is to go home, resume outpt counseling at [facility] and go to AA meetings in [place].
--- NOTE | 2016-05-31 12:16 | NUR ---
[facility] note: 0945 Stopped in to see patient, was seen on previous hospital stay in February 2016. Provided Diabetes management booklet and survival skills checklist, asked patient to complete when he is feeling better. Will continue to follow and evaluate educational needs.
[2016-05-31 12:19] LABS: CPK 433 IU/L (35-332)
--- NOTE | 2016-05-31 15:21 | NUR ---
Significant Event: VSS, EXCEPT HTN. 150-180'S. PATIENT A/O X 3. FOLLOWS COMMANDS. DENIES NUMBNESS/TINGLING TODAY, BUT SAYS SOMETIMES HE HAS NUMBNESS TO LEFT THIGH WHICH HE HASNT HAD TODAY. MODERATE AND EQUAL STRENGTH. LUNGS CLEAR AND DIM ON ROOM AIR, WEARS CPAP AT NIGHT. C/O PAIN TO CHEST THIS AM AND AGAIN THIS AFTERNOON. CARDIAC ENZYMES AND EKG DONE, UNREMARKABLE. PATIENT STATES HE SOMETIMES GETS THIS AT HOME. IT GOES AWAY QUICKLY AND IS A DULL PAIN. CURRENTLY HAS BANANA BAG INFUSING, WE ARE TO CALL THE DR WHEN BAG IS DONE FOR FURTHER ORDERS. IV IN LEFT FOREARM. UP STANDBY ASSIST. ADA DIET WITH AC/HS ACCUCHECKS. CONTINUES ON CIWA SCORING. PATIENT HAD SLIGHT TREMORS THIS AFTERNOON, AND SOME OCCASIONAL NAUSEA (EXCEPT DENIES WHEN I AM PRESENT )HE SAYS BUT HAS DONE PRETTY WELL. NO ATIVAN GIVEN SO FAR THIS SHIFT. Follow up: DETOX PATHYWAY. MONITOR BP'S. MONITOR FOR CHEST PAIN. ACCUCHECKS. ALARMS FOR SAFETY.
--- NOTE | 2016-06-01 04:55 | NUR ---
Significant Event: Patient is alert and oriented x3. Follows commands. denies pain. denies BAH. History of N/T in left leg. PERRLA. Strong equal strength. Tachycardic- 2+ pulses- trace edema. Room air- ok to remove ETCO2 while patient is on CPAP. Accu checks ACHS-ADA diet. Last BM 05/31- active x4. SBA. Takes pills whole with water. PIV in L) DEEP avendano'd. Follow up: Unsure of plan, may go home today 06/01.
[2016-06-01 05:06] LABS: ANION GAP 12.9 (10.0-19.0); BLOOD UREA NITROGEN 16 mg/dL (6-24); CALCIUM 8.5 mg/dL (8.5-10.5); CHLORIDE 107 mMol/L (96-110); CO2 30 mMol/L (22-32); CREATININE 1.1 mg/dL (0.6-1.3); ESTIMATED GFR (MDRD EQUATION) > 60; MAGNESIUM 1.5 mg/dL (1.8-2.6); POTASSIUM 3.9 mMol/L (3.7-5.1)
[2016-06-01 05:16] LABS: SODIUM 146 mMol/L (135-145)
--- NOTE | 2016-06-01 13:31 | NUR ---
Diabetes center note: 1330 Talked with patient regarding diabetes management, last A1C on chart was 03/07/16 6.7 %. Patient states he continues to take Metformin, but admits to not checking his blood sugars very much at home because his blood sugars are "...always good". Discussed risks of alcohol and diabetes, risks and complications (heart, eyes, nerves and kidneys) Patient states he know what to do, but just needs to do it!!! Encouraged to cessation of alcohol use Patient is currently planning to attend AA Meetings, when asked if he is currently working he states, "I just trying to go back to school" Encouraged and support provided, working on completing the Diabetes Survival skills assessment form at this time, to be applied to chart upon dismissal.
--- NOTE | 2016-06-01 17:20 | NUR ---
Significant Event: Patient alert and orientated x3. Chronic numbness and tingling. Equal strength. Patient on room air, lungs are clear and diminished. sinus rhythm, slight edema. Able to void and bowel movement. Accu checks ACHS. Diabetic diet. Up with stand by assist. No medications given or pain or detox. Follow up: To discharge 06/01/16
== END 2016-06-01 17:42 | disposition disaster alternative care site (69) ==
LOC: GMED 12:20 → GNTU 14:39
PROVIDERS: Internal Medicine; Nurse Practitioner Family; Physician Assistant Medical; ADMIT Internal Medicine
DX: F10.231 Alcohol dependence with withdrawal delirium (principal); E11.9 Type 2 diabetes mellitus without complications; J96.11 Chronic respiratory failure with hypoxia; J45.909 Unspecified asthma, uncomplicated; I10 Essential (primary) hypertension; F43.10 Post-traumatic stress disorder, unspecified; E66.01 Morbid (severe) obesity due to excess calories; Z68.43 Body mass index [BMI] 50.0-59.9, adult; Z88.1 Allergy status to other antibiotic agents
CPT/HCPCS: G0378; G0480; J1650; J2405; J2550; J7030

== ENCOUNTER 2016-06-11 10:22 | Inpatient (IN) | payer OTHER ==
[~2016-06-11] VITALS: Ht 177.8 cm; Wt 170.0 kg
--- NOTE | ~2016-06-11 | HP ---
PATIENT'S NAME: AILYN [facility] AGE: 35 Y [address] ROOM: [address] [address] LOCATION: [facility] ADMIT DATE: 06/11/2016 History & Physical DISCHARGE DATE: FAMILY PHYSICIAN: SALVADOR LAYNE MD ATTENDING PHYSICIAN: KAYLEEN MENDEZ DATE OF SERVICE: CHIEF COMPLAINT: Shaking. HISTORY OF PRESENT ILLNESS: This is a 35-year-old alcoholic male, who is a frequent flyer to for alcohol detox. History as obtained from the patient. He reports that since his discharge from here, which was end of April, please check the discharge summary which was done by Bee for details, that he has not felt great, he has been shaking, and he has also gone back to drinking. He reports that he basically drinks 1 to 2 pints of whiskey every day; however, in the last 3 days, he has drank a lot such that he cannot remember and sometimes he has also passed out from the drinking. He reports that today he felt shaky and decided to come into the ER. He reports that he has not had anything to eat for a few days, cannot say number of days, which he has not had anything to eat except just candy bars. He also notes some nausea, but denies vomiting. He also notes some generalized headache, which he rates as 2/10. Denies any seizure-like activity at home. Denies loss of consciousness at home. Denies fever at home. He notes though that he has been having some diarrhea on and off, at least twice per day, watery. Denies chest pain. Denies cough. The patient states his last drink was yesterday. REVIEW OF SYSTEMS: The 13 elements of review of systems were asked and as documented in the HPI, the others are negative. PAST MEDICAL HISTORY: Includes alcohol dependence, essential hypertension, dyslipidemia, diabetes type 2, morbid obesity, asthma, and PTSD. SOCIAL HISTORY: Stays at home with himself. He is a chronic alcoholic drinker, takes 1 to 2 pints of whiskey every day. Also smokes. Denies use of any illicit drugs. PAST SURGICAL HISTORY: None. FAMILY HISTORY: PATIENT'S NAME: AILYN [facility] AGE: 35 Y [address] ROOM: [address] [address] LOCATION: [facility] ADMIT DATE: 06/11/2016 History & Physical DISCHARGE DATE: FAMILY PHYSICIAN: SALVADOR LAYNE MD ATTENDING PHYSICIAN: KAYLEEN MENDEZ Father is healthy. Mother has history of DVT. PHYSICAL EXAMINATION: VITAL SIGNS: Temperature 99.0, pulse 111, respiratory rate 16, blood pressure 198/114, and oxygen saturation 91% on room air. GENERAL: Reveals a morbidly obese, young male, who appears a little bit shaky with mild sweating over his forehead. He is alert, awake, oriented x3. NEUROLOGIC: Cranial nerves 2 through 12 are intact bilaterally. Sensory is intact bilaterally. Power is 5/5 in all the extremities. HEENT: Normocephalic, atraumatic. Pupils equal and reactive to light bilaterally. Pharynx is normal. Mucosa is moist. He has tremor of his tongue. Ears, no obvious ear discharge or drainage. NECK: Short, obese. CARDIOVASCULAR: Normal S1 and S2. Tachycardia. CHEST: Decreased breath sounds in bilateral bases, probably secondary to an obese chest wall. ABDOMEN: Obese, distended. No area of tenderness. No palpable organomegaly. Positive bowel sounds. EXTREMITIES: He has tremors of his outstretched hands, mild. SKIN: No rash or skin breakdown. LABORATORY DATA: He came in with a lactic acid that was 7.0, repeat after 2 L of IV fluids 3.3. WBC 5.0, H and H 14.0 and 41.8, platelet 167. Sodium 139, potassium 3.5, chloride 101, CO2 of 22, calcium 8.8, creatinine 1.1, BUN 6, glucose 153, AST 149, ALT 206, total bilirubin 0.4, albumin 4.1, total protein 7.8. Urine drug screen, benzo positive. Lipase 156. Acetaminophen less than 2.0. Salicylate less than 2.8. RADIOLOGY: Not indicated. ASSESSMENT AND PLAN: This is a 35-year-old male with alcohol dependence, who comes in with shakes. 1. Alcohol dependence with withdrawal symptoms, present on admission. We will manage the patient as per the [facility] pathway. The patient has voiced that he would want treatment by going into a rehab center and is thinking about the [facility]. 2. Alcohol withdrawal, mild. We will manage as per the CIWA pathway. 3. Morbid obesity. We will recommend some diet restriction. 4. Accelerated hypertension, probably secondary to alcohol withdrawal. We will manage the blood pressure accordingly with Coreg and also some labetalol IV p.r.n. 5. Diabetes type 2 with hyperglycemia, mild. We will continue the patient PATIENT'S NAME: AILYN [facility] AGE: 35 Y [address] ROOM: [address] [address] LOCATION: [facility] ADMIT DATE: 06/11/2016 History & Physical DISCHARGE DATE: FAMILY PHYSICIAN: SALVADOR LAYNE MD ATTENDING PHYSICIAN: KAYLEEN MENDEZ on his home regimen; however, we will hold off on his metformin for now secondary to his lactic acidosis. 6. Dyslipidemia, stable. Continue on his medication. The line of management was explained to the patient, and I had an extensive long-time counseling the patient on the importance of trying to get back into a rehab center and to ultimately stop drinking. MD STEVIE LOPEZ/carlin /[id number] D: [id number] T: [id number] HISTORY & PHYSICAL
--- NOTE | ~2016-06-11 | DS ---
PATIENT'S NAME: AILYN VALLE [facility] AGE: 36 Y [address] ROOM: [address] [place], [place] [address] LOCATION: [facility] ADMIT DATE: 06/11/2016 Discharge Summary DISCHARGE DATE: 06/13/2016 FAMILY PHYSICIAN: Zach Rodrigues MD ATTENDING PHYSICIAN: Jose Sears FINAL DIAGNOSES: 1. Alcohol dependence disorder with acute intoxication. 2. Essential hypertension. 3. Morbid obesity. 4. Diabetes mellitus type 2. 5. Obstructive sleep apnea on CPAP. HOSPITAL COURSE: Please see details of admission in H and P by Dr. Sears. Briefly, the patient was admitted with withdrawal symptoms from alcohol. He was started on the CIWA pathway and his treatment per that protocol. The patient does have accelerated hypertension on admission and was covered with labetalol IV. His medications were continued and we covered him with sliding scale insulin throughout his stay. On hospital day 2, the patient continued to be tremulous, Librium was given, the patient got 3 mg of Ativan, respiratory severity scoring did rate him with a pulmonary history of 3, we used his DuoNebs q.4 h. p.r.n., Lovenox was utilized for DVT prophylaxis. On hospital day 2, the patient was feeling significantly better, less tremulous, stable on his feet, and able to tolerate p.o. intake. Blood sugars were well- controlled and it was felt that the patient could safely be discharged home. DIAGNOSTICS: Laboratory data: Blood sugars range from 119 to 195. Lactate on admission was 7 down to 1.4 prior to discharge. On admission, sodium was 139, potassium was 3.5, chloride 101, bicarb 22, glucose 153, BUN 6, creatinine 1.1, glucose was 153, total bili 0.4, alk phos 77, AST 149, ALT 206. Alcohol 0.057. Amylase 59, lipase 145. Acetaminophen and salicylate levels were negative. Prior to discharge, sodium 141, potassium 4.1, chloride 107, bicarb 27, glucose 120, BUN 13, and creatinine 1.0. Hemoglobin A1c was 7.0. On admission, white blood cell count 5.0, hemoglobin 14, hematocrit 41.8, and platelets 167. Prior to discharge, white blood cell count was 4.0, hemoglobin 11.7, hematocrit 36.5, and platelets 117. The patient's urine drug screen was positive for benzodiazepines. DISCHARGE INSTRUCTIONS: The patient is discharged home into the care of Dr. Rodrigues who will see him in 3-5 days. [facility] in approximately 2 weeks in [place], [place]. The patient's diet is calorie restricted diabetic diet. No alcohol. Activity is as tolerated. [facility]. PATIENT'S NAME: AILYN [facility]LE [facility] AGE: 36 Y [address] ROOM: [place] [address] LOCATION: [facility] ADMIT DATE: 06/11/2016 Discharge Summary DISCHARGE DATE: 06/13/2016 FAMILY PHYSICIAN: Zach Rodrigues MD ATTENDING PHYSICIAN: Jose Sears DISCHARGE MEDICATIONS: 1. Aspirin 81 mg daily. 2. Coreg 12.5 mg twice daily. 3. Vitamin D 2000 units daily. 4. Flonase 2 puffs to his nostril daily. 5. Folic acid 1 mg everyday. 6. Neurontin 100 mg twice daily and 300 mg at bedtime. 7. Lisinopril 20 mg daily. 8. Magnesium oxide 400 mg daily. 9. Multivitamin 1 tablet daily. 10. Pravastatin 40 mg daily. 11. Zoloft 100 mg daily. 12. [place] nasal spray 2 sprays each nostril 4 times daily. 13. Thiamine 100 mg daily. 14. Trazodone 200 mg at bedtime. 15. Metformin 1000 mg twice daily. 16. Zyrtec 10 mg at bedtime. 17. Robaxin 500 mg twice daily as needed. 18. Protonix 40 mg daily. We do appreciate participating in this patient's care and thank you very much for the ability to serve him while hospitalized at [facility]. Time spent coordinating details of discharge was less than 30 minutes. BRANDI WILSON FOR JOSE LOPES MD MARLYS/modl /[id number] d: 06/14/16 0327 t: 06/18/16 1507, DISCHARGE SUMMARY
--- NOTE | ~2016-06-11 | ER ---
PATIENT'S NAME: AILYN [facility]LE [facility] AGE: 35 Y [address] ROOM: [place] [address] [place] [facility] [place]: 06/11/2016 ER/Outpatient Report DISCHARGE DATE: FAMILY PHYSICIAN: SALVADOR LAYNE MD ATTENDING PHYSICIAN: KAYLEEN MENDEZ CHIEF COMPLAINT: Shaking memory loss and alcohol withdrawal. HISTORY OF PRESENT ILLNESS: The patient was discharged recently from the hospital where he was admitted for detox. He states since then he has been drinking since the day of discharge. He does not remember the last time he ate. He has been very tremulousness and does not feel steady on his feet. He was brought in by some friends earlier today. No other acute changes to his baseline. He states that he is trying to get [facility] for [facility]. He states that his brother is trying to help with that. He states that he wants to get clean, but he does not know any other way to manage his shakes other than drinking. He also feels he is very weak and does not remember the last time he ate. PAST MEDICAL HISTORY: Documented on the record and reviewed by me. SOCIAL HISTORY: Documented on the record and reviewed by me. MEDICATIONS: Documented on the record and reviewed by me. ALLERGIES: DOCUMENTED ON THE RECORD AND REVIEWED BY ME. REVIEW OF SYSTEMS: All systems reviewed and negative except as noted in the HPI. PHYSICAL EXAMINATION: VITAL SIGNS: Blood pressure 186/101, pulse is 125, respiratory rate is 20, temperature is 97.5, SpO2 is 98% on room air. GENERAL: Age-appropriate male in obvious misery, but no pain and no distress, is lying on his left side on the exam table. NEUROLOGIC: The patient is awake. He moves all extremities to command. He appears weak and unsteady, but no significant other findings. He does have a PATIENT'S NAME: AILYN VALLE [facility] AGE: 35 Y [address] ROOM: [place] [address] [place] [facility] [place]: 06/11/2016 ER/Outpatient Report DISCHARGE DATE: FAMILY PHYSICIAN: SALVADOR LAYNE MD ATTENDING PHYSICIAN: KAYLEEN MENDEZ tremor. HEENT: Normocephalic, atraumatic. Eyes are PERRL. Oropharynx is clear. NECK: Supple. Trachea is midline. CHEST: Grossly normal exam, markedly limited by body habitus. ABDOMEN: Morbidly obese. No obvious abnormalities. EXTREMITIES: Warm and well perfused. SKIN: Diaphoretic, flushed, warm, otherwise. LABS AND X-RAYS: Labs were most notable for a lactate of 7.0 down to 4.2, down to 3.3. CBC grossly unremarkable. Lipase is 156. CMS is notable for potassium at 3.5, glucose 153, creatinine 1.1, GFR 60. LFTs unremarkable other than AST of 149, ALT of 206, alcohol is 0.057, amylase is 59. Acetaminophen is below threshold. Salicylate is below level. IMPRESSION: 1. Alcoholism. 2. Alcoholic ketosis. 3. Dehydration. 4. Alcohol withdrawal. 5. Hyperlacticacidemia. EMERGENCY DEPARTMENT COURSE: The patient was seen and evaluated. Labs notable for elevated lactate. The patient received a total of 3 L of normal saline with persistently elevated lactic acid. He is given a few doses of Ativan for his tremors. Upon becoming medically stable, I had extensive conversation with the patient regarding his hospital usage and alcoholism. He states that he wants help and he feels as though he would not be safe if we were to send him home at this time with some Ativan or Librium for his symptom management. Because of this, he will be admitted to the hospitalist for further evaluation and treatment in the setting of alcoholism. All questions were answered. The patient was admitted without further issue. MD PAULA COUCH/carlin /[id number] d: 06/11/[id number] t: 06/13/162144, OUTPATIENT REPORT
[~2016-06-11 10:22] MED LIST changes: +NEURONTIN100 MG PO
[2016-06-11 11:20] LABS: BASOPHIL # 0.1 K/uL (0.0-0.2); EOSINOPHIL % 0.2 %; HEMATOCRIT 41.8 % (37.0-53.0); IMMATURE GRANULOCYTE % 0.2 %; LYMPHOCYTE # 0.8 K/uL (0.8-4.0); LYMPHOCYTE % 15.7 %; MCH 28.2 pg (27.0-34.0); MCHC 33.5 gm/dL (32.0-36.5); MCV 84.1 fl (83.0-98.0); MONOCYTE # 0.6 K/uL (0.0-1.0); MONOCYTE % 11.6 %; MPV 9.9 fl (9.4-12.4); NEUTROPHIL # (ANC) 3.6 K/uL (1.4-9.0); NEUTROPHIL % 71.3 %; NRBC % 0 /100WBC (0-0.00); RBC 4.97 M/uL (4.00-6.00); RDW-CV 15.7 % (11.9-14.6)
[2016-06-11 11:41] LABS: ALBUMIN 4.1 gm/dL (3.5-5.0); ALK PHOS 77 IU/L (33-138); ALT 206 IU/L (12-78); ANION GAP 19.5 (10.0-19.0); AST 149 IU/L (10-40); BLOOD UREA NITROGEN 6 mg/dL (6-24); CALCIUM 8.8 mg/dL (8.5-10.5); CHLORIDE 101 mMol/L (96-110); CO2 22 mMol/L (22-32); CREATININE 1.1 mg/dL (0.6-1.3); ESTIMATED GFR (MDRD EQUATION) > 60; POTASSIUM 3.5 mMol/L (3.7-5.1); SODIUM 139 mMol/L (135-145); TOTAL BILIRUBIN 0.4 mg/dL (0.0-1.5); TOTAL PROTEIN 7.8 g/dL (6.0-8.4)
[2016-06-11 11:49] LABS: PLATELET COUNT 167 K/uL (150-450)
[2016-06-11 17:49] LABS: BARBITURATE NEGATIVE (NEGATIVE); COCAINE NEGATIVE (NEGATIVE); OPIATES NEGATIVE (NEGATIVE)
[2016-06-11 17:50] LABS: AMPHETAMINE NEGATIVE (NEGATIVE)
--- NOTE | 2016-06-11 17:52 | NUR ---
Patient is a 35 year old male who was admitted for alochol detox. Patient was just discharged recently from the hospital. He states he does not remember much of the past two days and how much he drank, but on a regular occasion he drinks 1 pint of whisky. Past medical history includes diabetes, htn, high choleseterol, kidney stones and numbness and tingling down his left thigh, PTSD. He is a vet. Blood pressure and pulse were elevated when coming to the floor. Sweating profusely and complaints of nausea and fullness in the head. CIWA score is a 22. Dr. Sears to see. Cooperative with the admission, pleasant patient.
--- NOTE | 2016-06-12 05:09 | NUR ---
Significant Event: Patient alert and oriented. Repositioned self in bed. Hypertensive with pressures 130-200s/90-1-teens. Heart rates 90-100s. Labetalol given x 3 this shift. CIWA scores 22 at start if shift. Last CIWA 4 at 0300. Total of 9 mg of po ativan given this shift. Patient resting well since 0230. Voids per urinal 200 ml of concentrated urine. IV to left hand with NS at 100 ml/hour. Pleasant and cooperative with cares. Follow up: pressures, CIWA,
[2016-06-12 05:32] LABS: BASOPHIL % 0.7 %; EOSINOPHIL % 0.4 %; HEMATOCRIT 38.3 % (37.0-53.0); HEMOGLOBIN 12.3 g/dL (12.0-17.0); IMMATURE GRANULOCYTE % 0.2 %; LYMPHOCYTE # 1.6 K/uL (0.8-4.0); LYMPHOCYTE % 29.2 %; MCHC 32.1 gm/dL (32.0-36.5); MCV 87.2 fl (83.0-98.0); MONOCYTE # 0.8 K/uL (0.0-1.0); MPV 10.3 fl (9.4-12.4); NEUTROPHIL % 54.5 %; NRBC % 0 /100WBC (0-0.00); PLATELET COUNT 143 K/uL (150-450); RBC 4.39 M/uL (4.00-6.00); RDW-CV 15.9 % (11.9-14.6); WBC 5.5 K/uL (4.0-11.0)
[2016-06-12 06:03] LABS: ALBUMIN 3.2 gm/dL (3.5-5.0); ALK PHOS 65 IU/L (33-138); ALT 149 IU/L (12-78); ANION GAP 12.1 (10.0-19.0); AST 97 IU/L (10-40); CALCIUM 8.2 mg/dL (8.5-10.5); CHLORIDE 107 mMol/L (96-110); CO2 27 mMol/L (22-32); CREATININE 1.1 mg/dL (0.6-1.3); ESTIMATED GFR (MDRD EQUATION) > 60; MAGNESIUM 2.2 mg/dL (1.8-2.6); PHOSPHORUS 3.1 mg/dL (2.5-4.9); POTASSIUM 4.1 mMol/L (3.7-5.1); SODIUM 142 mMol/L (135-145); TOTAL BILIRUBIN 0.4 mg/dL (0.0-1.5); TOTAL PROTEIN 6.6 g/dL (6.0-8.4)
[2016-06-12 06:04] LABS: BLOOD UREA NITROGEN 12 mg/dL (6-24)
--- NOTE | 2016-06-12 12:45 | NUR ---
Introduced self/role to patient. He stated his brother is looking into inpatient rehab with the [facility] for him. This is his desire. Denied any needs there. He has done inpatient treatment a few times at [facility] and remained sober for over 2 years he reports. He was hanging out with a friend a lot and he got a new job and they can't hang out much anymore and they set him off to drink again. We talked about the importance of hobbies and employment to get to know more friends. He was going to college at [employer] but then changed to an online program. Wants to do something technical with data and computers. [facility] paying for college. We talked about his mental health. He has seen his new therapies twice he report. 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 We discussed how it make take a few different tries with a therapies or a new therapist all together inorder to find the connect needed to progress. He denied any financial or basic domestic needs. Added my name to his marker board. Will continue to follow but no needs to address at this time as he states his brother is working on the treatment part.
--- NOTE | 2016-06-12 16:54 | NUR ---
Significant Event: PT AO. BPs RUNNING HTN THIS SHIFT. HAS PRN LABETALOL IF SBP >170. LAST WAS 176- GAVE PO COREG AND WILL RECHECK. TELEMETRY ON WITH NO CALLS. AC HS ACCUCHECKS, NO COVERAGE NEEDED. CIWA SCORES BETWEEN 5-7, NO PRN ATIVAN NEEDED PER SCALE. DID ORDER 1X DOSE LITHIUM. NEXT ASSESSMENT DUE AT 1999. PT HAD FORMED STOOL, UNABLE TO SEND DOWN FOR CDIFF TESTING. PT HAS DENIED NEED FOR PRN MEDS. SHOWERED. IVF CONTINUE TO RUN TO L HAND @ 100ML/HR. Follow up: CIWA SCORING, CONTINUE TO MONITOR
--- NOTE | 2016-06-13 04:42 | NUR ---
Significant Event: ALERT AND ORIENTED X4 AMBULATES INDEPENDENTLY IN ROOM. HTN LABETALOL GIVE X1. TELE ON NO CALLS. ACHS NO COVERAGE NEEDED. CIWA SCORES 2-4 DOING Q 4 HOURS. NO LOOSE STOOOLS THIS SHIFT. IVF CONTINUING TO RUN TO L HAND @ 100 ML PER HR. PATIENT WAS RELAXED AND SLEPT WITH EYES CLOSED THIS EVENING. Follow up: CIWA SCORE AND HTN MONITOR.
[2016-06-13 05:35] LABS: BASOPHIL # 0.1 K/uL (0.0-0.2); BASOPHIL % 1.2 %; EOSINOPHIL # 0.1 K/uL (0.0-0.5); EOSINOPHIL % 1.4 %; HEMATOCRIT 36.5 % (37.0-53.0); HEMOGLOBIN 11.7 g/dL (12.0-17.0); LYMPHOCYTE # 1.4 K/uL (0.8-4.0); LYMPHOCYTE % 33.7 %; MCH 28.2 pg (27.0-34.0); MCHC 32.1 gm/dL (32.0-36.5); MONOCYTE # 0.4 K/uL (0.0-1.0); MONOCYTE % 9.5 %; NEUTROPHIL # (ANC) 2.3 K/uL (1.4-9.0); NEUTROPHIL % 54.2 %; NRBC % 0 /100WBC (0-0.00); PLATELET COUNT 117 K/uL (150-450); RBC 4.15 M/uL (4.00-6.00); RDW-CV 15.3 % (11.9-14.6); WBC 4.2 K/uL (4.0-11.0)
[2016-06-13 05:48] LABS: ANION GAP 11.1 (10.0-19.0); BLOOD UREA NITROGEN 13 mg/dL (6-24); CALCIUM 8.5 mg/dL (8.5-10.5); CHLORIDE 107 mMol/L (96-110); CO2 27 mMol/L (22-32); ESTIMATED GFR (MDRD EQUATION) > 60; SODIUM 141 mMol/L (135-145)
[2016-06-13 05:51] LABS: POTASSIUM 4.1 mMol/L (3.7-5.1)
[2016-06-13 05:55] LABS: PHOSPHORUS 4.2 mg/dL (2.5-4.9)
--- NOTE | 2016-06-13 11:11 | NUR ---
0820 [facility] sent [facility] for [facility] to [facility]. Had patient fill it out and sign it. Faxed back to #[phone]. 1800 Alanis from [facility] called and left a message regarding CD eval and she hasn't been able to find someone to do that today. 1100 Called Dionne Long with [facility][phone]. She got the release and is gathering his record up to send to [facility] in [place], an intensive inpatient treatment. Has been in their program 3 times, at [facility] and to [place], [place] for a 7 week PTSD treatment. At this point she didn't need anything from me or [facility]. He would discharged and then go to this treatment facility once paperwork is completed. 1105 Called Misty Mattson and updated her. Patient may go home today or tomorrow. 1110 Called Alanis back #[phone] and updated her. [facility] might require a CD eval before being admitted. They can't get that done today but can be done outpatient too.
[2016-06-13] MEDS ORDERED: MAG-OX-400(241400 MG PO ×2 (13:16→13:19)
[2016-06-13] MEDS ORDERED: NICOTINE PATCH1 EAC1 TOP (13:16)
[2016-06-13] MEDS ORDERED: OCEAN NASAL) (A44 ML NOSE (13:17)
[2016-06-13] MEDS ORDERED: LOPRESSOR50 MG PO (13:19)
[2016-06-13] MEDS ORDERED: NAPROSYN250 MG PO (13:19)
--- NOTE | 2016-06-13 15:57 | NUR ---
DISCHARGE: Pt. was educated on new medications, mag-ox, nicotine patch, and nasal spray. Educated on alcohol recovery and referred to resources. Educated on diabetic diet and calorie restriction. Patient verbalized understanding, no questions or concerns. country manager provided f/u information for CD evaluation at [facility]. Plan for patient to arrange inpatient treatment through [place]. Will have f/u appointment this Sunday at [facility]. Awaiting ride home from friend. No home medications, no items in safe. Teachings and scripts left in room with patient for discharge.
--- NOTE | 2016-06-14 15:50 | NUR ---
Called Dionne at the [facility] to let her know patient did discharge last evening.
== END 2016-06-13 16:55 | disposition disaster alternative care site (69) | DRG 897 ==
LOC: GMED 10:22 → GMSU 16:30
PROVIDERS: Emergency Medicine; Internal Medicine; ADMIT Hospitalist
DX: F10.220 Alcohol dependence with intoxication, uncomplicated (principal); Z99.81 Dependence on supplemental oxygen; E11.65 Type 2 diabetes mellitus with hyperglycemia; Z68.43 Body mass index [BMI] 50.0-59.9, adult; I10 Essential (primary) hypertension; G47.33 Obstructive sleep apnea (adult) (pediatric); E66.01 Morbid (severe) obesity due to excess calories; E78.5 Hyperlipidemia, unspecified; F17.290 Nicotine dependence, other tobacco product, uncomplicated; Z79.84 Long term (current) use of oral hypoglycemic drugs
CPT/HCPCS: G0480; J1650; J2060; J2405; J3475; J7030; Q0162